=== PATIENT | male | born 1980 | race Caucasian/White ===

== ENCOUNTER 2021-11-15 06:38 | Outpatient (REF) | payer OTHER, SELFPAY ==
[2021-11-15 11:17] LABS: Binax Internal Control QC Valid; Binax Now Covid-19 Ag Negative (Negative)
== END 2021-11-15 06:39 | disposition home or self-care (01) ==
LOC: HO.HMGCLDS 06:38
PROVIDERS: Visit Provider Internal Medicine
DX: Z20.822 Contact with and (suspected) exposure to COVID-19 (principal)
CPT/HCPCS: 36415; C9803

== ENCOUNTER 2021-11-21 15:16 | Emergency (ER) | payer OTHER, SELFPAY ==
--- NOTE | ~2021-11-21 | XR_ITS ---
EXAMINATION: XR ANKLE, LEFT CLINICAL INFORMATION: Trauma, pain COMPARISON: None TECHNIQUE: AP, lateral, and mortise views of the left ankle. FINDINGS: The malleoli are intact and the ankle mortise is symmetric. There is no fracture or dislocation or visible ankle capsular effusion. There is mild narrowing from the distal anterior tibia and medial malleolus. The subtalar joint is unremarkable. The retrocalcaneal recess is preserved. There are posterior calcaneal spur. Mild persistent talonavicular region. XR/XR ankle LT min 3V IMPRESSION: No fracture or dislocation.
[2021-11-21 15:39] VITALS: BP 165/93; PULSE 98; RESP 18; TEMP 36.8; O2SAT 95; BMI 41.5
--- NOTE | 2021-11-21 17:21 | ED_ITS ---
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 He is able to ambulate, does not report any other injuries, states the painful when he bears full weight. MD complaint: ankle injury Onset (ago): hour(s) (Within the hour of arrival) Type of Injury: inversion Place: work Severity: mild Severity scale (1-10): 4 Relieving factors: rest Exacerbating factors: weight bearing, movement and palpation Context: walking Associated symptoms: ambulatory Other symptoms: none Related Data Allergies Allergy/AdvReac Type Severity Reaction Status Date / Time No Known Allergies Allergy Unverified 07/27/20 16:23 [No Known Allergies*] Review of Systems Verdana 4l Review of Systems: Verdana 4d Verdana 4d Constitutional: No Fever, No Chills ENT/Mouth: No Ear Pain, No Hoarseness, No sore throat Eyes: No Eye Pain, No Swelling, No Redness, No Foreign Body Cardiovascular: No Chest Pain, No SOB Respiratory: No Cough, No Dyspnea GastrointestinalGastrointestinal: No Nausea, No Vomiting, No Diarrhea, No abdominal Pain Genitourinary: No Dysuria, No Hematuria Musculoskeletal: positive left ankle pain, No Myalgias, No Joint Swelling Skin: No Skin lacerations, No rash Neuro: No Weakness, No Numbness, No Paresthesias, No Loss of Consciousness, No Dizziness, No Headache Psych: No Anxiety/Panic, No Depression Heme/Lymph: no easy bruising, no Lymphadenopathy Endocrine: No Polyuria, No Polydipsia Yes all other systems are reviewed and are negative [facility] Past Medical History Attestation statement: The following information was validated with the patient. Source: old records reviewed Medical History No pertinent past medical history Social History Social History Advance Directives: No Advance Directives Information Provided: No Physical Exam Verdana 4l Vital Signs: Verdana 4d Verdana 4d Vital Signs: Verdana 4d Verdana 4Bd Last Vital Signs Verdana 4d Steeping Press Tender New 4d Alvino New 4d Temp 98.2 F 11/21/21 15:39 Steeping Press Tender New 4d Pulse 98 11/21/21 15:39 Alvino NewNew 4d Resp 18 11/21/21 15:39 BP 165/93 H 11/21/21 15:39 Pulse Ox 95 11/21/21 15:39 BMI result Body Mass Index 41.5 Appearance: Alert. Oriented X3. No acute distress. Eyes: Pupils equal, round and reactive to light. ENT: Pharynx normal. Neck: Normal inspection. Neck supple. CVS: Normal heart rate and rhythm. Pulses normal. Respiratory: No respiratory distress. Breath sounds normal. Abdomen: Soft and nontender. Skin: Skin warm and dry. Normal skin color. Normal skin turgor. Extremities: No lower extremity edema. Full range of motion to bilateral lower extremities, brisk capillary refill and equal pulses. No ecchymosis wounds or lesions. No evidence of tendon deficit, strength 5/5. Tenderness noted to the anterior lateral malleolar process. Neuro: No motor deficit. No sensory deficit. Cranial nerves 2-12 intact. 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 X-rays are negative for acute findings requiring emergent intervention. Physical exam is negative, patient has full range of motion, brisk capillary refill and equal pulses. injuries consistent with a grade 1 sprain to the left ankle. Will place in Francisco Javier wrap. Offered Tylenol and Motrin, patient respectfully declined. Patient was advised to follow up with work connection as needed. Patient does not report any other symptoms at this time Patient verbalized understanding of and agrees plan of care discharge home. MDM - Extremity Injury (Lower) Differential Diagnosis Differential diagnosis: Likely ankle sprain and strain and ankle fracture Medical Records Attestation: I reviewed the patient's medical records. Imaging Data Ankle x-ray: Attestation: I personally reviewed and interpreted this imaging study as follows: Radiologist's impression: EXAMINATION: XR ANKLE, LEFT CLINICAL INFORMATION: Trauma, pain? COMPARISON: None? TECHNIQUE: AP, lateral, and mortise views of the left ankle. FINDINGS: The malleoli are intact and the ankle mortise is symmetric. There is no fracture or dislocation or visible ankle capsular effusion. There is mild narrowing from the distal anterior tibia and medial malleolus. The subtalar joint is unremarkable. The retrocalcaneal recess is preserved. There are posterior calcaneal spur. Mild persistent talonavicular region.? XR/XR ankle LT min 3V IMPRESSION: No fracture or dislocation. Discharge Plan Discharge Clinical Impression: Ankle sprain and strain Patient Disposition: Home, Self-Care Instructions: Ankle Sprain (ED) Additional Instructions: You were evaluated for left ankle pain after an injury at work. X-rays negative for fracture or dislocation. Your physical exam it is consistent with a grade 1 ankle sprain. please ice and elevate the ankle to help reduce pain and swelling. Use Tylenol 650 mg every 6 hours and Motrin 600 mg every 6 hours as needed for pain management. Please write down what time you takes these medications to prevent accidental overdose. Use Francisco Javier wrap as needed for comfort. Follow up with work connection for further care. Thank you for choosing this emergency department for evaluation. Please follow-up with primary care physician as needed. Return to the emergency department for any new, concerning, or worsening symptoms. Stand Alone Forms: Work/School Release Interventions: ED Discharge Assessment Last Done: 11/21/21 18:08 Discharge Date/Time: 11/21/21 18:53
== END 2021-11-21 18:53 | disposition home or self-care (01) ==
PROVIDERS: Emergency Provider Emergency Medicine
DX: S93.402A Sprain of unspecified ligament of left ankle, initial encounter (principal); S96.912A Strain of unspecified muscle and tendon at ankle and foot level, left foot, initial encounter; X50.1XXA Overexertion from prolonged static or awkward postures, initial encounter; Y93.89 Activity, other specified; Y92.818 Other transport vehicle as the place of occurrence of the external cause; Y99.0 Civilian activity done for income or pay
CPT/HCPCS: 73610; 99283